=== PATIENT | female | born 1955 | race Two or more races ===

== ENCOUNTER 2020-12-29 21:22 | Emergency (ER) | payer MEDICARE, OTHER ==
[~2020-12-29] VITALS: Ht 152.4 cm; Wt 59.0 kg
[2020-12-30 00:49] VITALS: BP 167/99
[2020-12-30] MEDS ORDERED: KETOROLAC TROMETH 60MG/2ML VIAL IM ONE (06:00)
[2020-12-30 08:53] LABS: Basophils # (auto) 0.1 10 ^3/uL (0-0.2); Basophils % (auto) 0.4 % (0.0-2.0); Eosinophils # (auto) 0.1 10 ^3/uL (0-0.8); Eosinophils % (auto) 0.6 % (0.0-7.0); Hematocrit 41.5 % (36.0-46.0); Lymphocytes # (auto) 3.1 10 ^3/uL (0.4-5.4); Lymphocytes % (auto) 25.2 % (10.0-50.0); Mean Corpuscular Hemoglobin 29.2 pg (28.0-32.0); Mean Corpuscular Hgb Conc. 33.7 g/dL (32.0-36.0); Mean Corpuscular Volume 86.7 fL (80.0-100.0); Monocytes # (auto) 0.6 10 ^3/uL (0-1.3); Monocytes % (auto) 4.8 % (0.0-12.0); Neutrophils # (auto) 8.5 10 ^3/uL (1.6-8.6); Red Blood Cells 4.79 10^6/uL (4.0-5.20); Red Cell Distribution Width 13.3 % (11.8-14.3); White Blood Cell 12.3 10^3/uL (4.4-10.8)
[2020-12-30 09:11] LABS: Albumin 3.5 g/dL (3.4-5.0); Calcium 8.8 mg/dL (8.5-10.1); Potassium 3.5 mmol/L (3.5-5.1)
[2020-12-30 09:14] LABS: BUN/Creatinine Ratio 21.1; Bilirubin, Total 0.5 mg/dL (0.2-1.0); Total Protein 7.7 g/dL (6.4-8.2)
== END 2020-12-30 09:54 | disposition home or self-care (01) ==
LOC: ER 21:25
DX: G43.909 Migraine, unspecified, not intractable, without status migrainosus (principal); E78.5 Hyperlipidemia, unspecified
CPT/HCPCS: 36415; 70450; 80053; 85025; 93005; 96372; 99285; J1885

== ENCOUNTER 2021-01-16 22:55 | Emergency (ER) | payer OTHER ==
[~2021-01-16] VITALS: Ht 152.4 cm; Wt 68.0 kg
[2021-01-17 00:57] LABS: Basophils # (auto) 0.1 10 ^3/uL (0-0.2); Basophils % (auto) 0.9 % (0.0-2.0); Eosinophils # (auto) 0.1 10 ^3/uL (0-0.8); Monocytes # (auto) 0.6 10 ^3/uL (0-1.3); Neutrophils # (auto) 5.6 10 ^3/uL (1.6-8.6); Neutrophils % (auto) 61.4 % (37.0-80.0); White Blood Cell 9.2 10^3/uL (4.4-10.8)
[2021-01-17 01:01] LABS: Eosinophils % (auto) 0.7 % (0.0-7.0); Hematocrit 43.9 % (36.0-46.0); Lymphocytes # (auto) 2.8 10 ^3/uL (0.4-5.4); Lymphocytes % (auto) 30.3 % (10.0-50.0); Mean Corpuscular Hemoglobin 29.5 pg (28.0-32.0); Mean Corpuscular Hgb Conc. 34.1 g/dL (32.0-36.0); Mean Corpuscular Volume 86.4 fL (80.0-100.0); Monocytes % (auto) 6.7 % (0.0-12.0); Nucleated Red Blood Cells % 0.1 %; Red Blood Cells 5.08 10^6/uL (4.0-5.20); Red Cell Distribution Width 13.6 % (11.8-14.3)
[2021-01-17 01:10] LABS: Albumin 4.2 g/dL (3.4-5.0); Calcium 9.6 mg/dL (8.5-10.1); Potassium 3.6 mmol/L (3.5-5.1)
[2021-01-17 01:15] LABS: BUN/Creatinine Ratio 24.2; Bilirubin, Total 0.4 mg/dL (0.2-1.0); Total Protein 8.9 g/dL (6.4-8.2)
[2021-01-17 01:50] LABS: Partial Thromboplastin Time 26.7 sec (23.6-33.0)
[2021-01-17] MEDS ORDERED: diphenhdrAMINE HCL 50 MG/1 ML VL IV ONE (03:30)
[2021-01-17] MEDS ORDERED: KETOROLAC TROMETH 30 MG/ML 1ML VIAL IV ONE (03:30)
[2021-01-17] MEDS ORDERED: METOCLOPRAMIDE HCL 5MG/ml INJ 2ml VIAL IV ONE (03:30)
[2021-01-17] MEDS ORDERED: ACETAMINOPHEN 500 MG TAB PO ONE (03:30)
[2021-01-17] MEDS ORDERED: SODIUM CHLORIDE 0.9% 1,000 ML IV ONE (03:30)
[2021-01-17 06:00] VITALS: BP 134/79
== END 2021-01-17 06:37 | disposition home or self-care (01) ==
LOC: ER 22:55
DX: G43.909 Migraine, unspecified, not intractable, without status migrainosus (principal); E78.5 Hyperlipidemia, unspecified
CPT/HCPCS: 36415; 70450; 71045; 80053; 83735; 83880; 84484; 85025; 85610; 85730; 93005; 96361; 96374; 96375

== ENCOUNTER 2021-03-22 02:45 | Emergency (ER) | payer OTHER ==
[~2021-03-22] VITALS: Ht 152.4 cm; Wt 59.0 kg
[2021-03-22 03:34] LABS: Basophils # (auto) 0.1 10 ^3/uL (0-0.2); Basophils % (auto) 0.8 % (0.0-2.0); Eosinophils # (auto) 0.1 10 ^3/uL (0-0.8); Eosinophils % (auto) 1.2 % (0.0-7.0); Hematocrit 45.3 % (36.0-46.0); Hemoglobin 15.2 g/dL (12.2-16.2); Lymphocytes # (auto) 3.5 10 ^3/uL (0.4-5.4); Lymphocytes % (auto) 33.3 % (10.0-50.0); Mean Corpuscular Hemoglobin 29.1 pg (28.0-32.0); Mean Corpuscular Hgb Conc. 33.5 g/dL (32.0-36.0); Mean Corpuscular Volume 86.8 fL (80.0-100.0); Monocytes # (auto) 0.7 10 ^3/uL (0-1.3); Neutrophils # (auto) 6.1 10 ^3/uL (1.6-8.6); Neutrophils % (auto) 57.7 % (37.0-80.0); Nucleated Red Blood Cells % 0.1 %; Red Blood Cells 5.22 10^6/uL (4.0-5.20); White Blood Cell 10.6 10^3/uL (4.4-10.8)
[2021-03-22 03:51] LABS: Albumin 4.3 g/dL (3.4-5.0); BUN/Creatinine Ratio 27.2; Potassium 4.4 mmol/L (3.5-5.1)
[2021-03-22 03:54] LABS: Bilirubin, Total 0.3 mg/dL (0.2-1.0); Total Protein 8.6 g/dL (6.4-8.2)
[2021-03-22 07:42] VITALS: BP 108/69
[2021-03-22] MEDS ORDERED: IBU600T PO (08:08)
[2021-03-22] MEDS ORDERED: HYDROcodone-ACET 5/325MG TAB PO ONE (08:30)
== END 2021-03-22 10:09 | disposition home or self-care (01) ==
LOC: ER 02:45
DX: G43.909 Migraine, unspecified, not intractable, without status migrainosus (principal); I10 Essential (primary) hypertension; E78.5 Hyperlipidemia, unspecified; Z79.1 Long term (current) use of non-steroidal anti-inflammatories (NSAID)
CPT/HCPCS: 36415; 70450; 80053; 84484; 85025; 93005

== ENCOUNTER 2021-04-07 23:51 | Emergency (ER) | payer OTHER ==
[~2021-04-07] VITALS: Ht 152.4 cm; Wt 59.0 kg
[~2021-04-07 23:51] MED LIST: IBU600T PO
[2021-04-08] MEDS ORDERED: MORPHINE SULFATE 4 MG/ML SYR/VIAL IV ONE (02:00)
[2021-04-08] MEDS ORDERED: ASPirin 325 MG TAB PO ONE (02:00)
[2021-04-08] MEDS ORDERED: NITROGLYCERIN 0.4 MG SL TAB SL ONE (02:00)
[2021-04-08] MEDS ORDERED: NITROGLYCERIN 0.4 MG SL TAB SL PRN (02:30)
[2021-04-08] MEDS ORDERED: SUMAtriptan SUCCINATE 6 MG/0.5 ML VL SC ONE (02:45)
[2021-04-08 06:00] VITALS: BP 137/77
== END 2021-04-08 06:24 | disposition home or self-care (01) ==
LOC: ER 23:51
DX: R07.89 Other chest pain (principal); G43.909 Migraine, unspecified, not intractable, without status migrainosus; E78.5 Hyperlipidemia, unspecified; I10 Essential (primary) hypertension; Z79.1 Long term (current) use of non-steroidal anti-inflammatories (NSAID)
CPT/HCPCS: 36415; 71045; 84484; 93005; 96372; 99285; J3030

== ENCOUNTER 2021-04-17 02:37 | Emergency (ER) | payer OTHER ==
[~2021-04-17] VITALS: Ht 149.9 cm; Wt 59.9 kg
[2021-04-17 03:33] VITALS: BP 130/83
[2021-04-17] MEDS ORDERED: METOCLOPRAMIDE HCL 5MG/ml INJ 2ml VIAL IV ONE (04:00)
[2021-04-17] MEDS ORDERED: KETOROLAC TROMETH 30 MG/ML 1ML VIAL IV ONE (04:00)
[2021-04-17] MEDS ORDERED: SODIUM CHLORIDE 0.9% 1,000 ML IV ONE (04:00)
[2021-04-17] MEDS ORDERED: ACETAMINOPHEN 325 MG TAB PO ONE (04:00)
== END 2021-04-17 07:36 | disposition home or self-care (01) ==
LOC: ER 02:37
DX: G44.049 Chronic paroxysmal hemicrania, not intractable (principal); E78.5 Hyperlipidemia, unspecified; Z79.1 Long term (current) use of non-steroidal anti-inflammatories (NSAID)
CPT/HCPCS: 70450; 96361; 96374; 99284; J1885; J2765; J7030

== ENCOUNTER 2021-05-06 16:20 | Inpatient (IN) | payer OTHER ==
[~2021-05-06] VITALS: Ht 152.4 cm; Wt 58.3 kg
[2021-05-06] MEDS ORDERED: SODIUM CHLORIDE 0.9% 1,000 ML IV ONE (18:15)
[2021-05-06] MEDS ORDERED: diphenhdrAMINE HCL 50 MG/1 ML VL IV ONE (18:15)
[2021-05-06 19:06] LABS: Basophils # (auto) 0.1 10 ^3/uL (0-0.2); Basophils % (auto) 0.9 % (0.0-2.0); Eosinophils # (auto) 0.1 10 ^3/uL (0-0.8); Eosinophils % (auto) 0.8 % (0.0-7.0); Hematocrit 38.4 % (36.0-46.0); Hemoglobin 13.7 g/dL (12.2-16.2); Lymphocytes % (auto) 28.8 % (10.0-50.0); Mean Corpuscular Hemoglobin 29.7 pg (28.0-32.0); Mean Corpuscular Hgb Conc. 35.7 g/dL (32.0-36.0); Mean Corpuscular Volume 83.1 fL (80.0-100.0); Monocytes # (auto) 0.6 10 ^3/uL (0-1.3); Monocytes % (auto) 5.3 % (0.0-12.0); Neutrophils # (auto) 6.6 10 ^3/uL (1.6-8.6); Neutrophils % (auto) 64.2 % (37.0-80.0); Nucleated Red Blood Cells % 0.1 %; Red Blood Cells 4.63 10^6/uL (4.0-5.20); Red Cell Distribution Width 13.1 % (11.8-14.3); White Blood Cell 10.3 10^3/uL (4.4-10.8)
[2021-05-06 19:23] LABS: Albumin 4.4 g/dL (3.4-5.0); Calcium 9.7 mg/dL (8.5-10.1); Magnesium 2.8 mg/dL (1.6-2.6); Potassium 3.2 mmol/L (3.5-5.1)
[2021-05-06 19:27] LABS: BUN/Creatinine Ratio 26.1; Bilirubin, Total 0.4 mg/dL (0.2-1.0); Total Protein 8.3 g/dL (6.4-8.2)
[2021-05-06] MEDS ORDERED: VALPROATE INJ 1,000 MG in SODIUM CHL 0.9% 100 ML IV ONE (21:30)
[2021-05-06] MEDS ORDERED: NITROGLYCERIN 0.4 MG SL TAB SL PRN (21:30)
[2021-05-06] MEDS ORDERED: MORPHINE SULFATE INJECTION 2 MG/ML SYRG IV PRN (21:30)
[2021-05-06] MEDS ORDERED: ONDANSETRON HCL 4 MG/2 ML VIAL IV PRN (21:30)
[2021-05-06] MEDS ORDERED: MORPHINE SULFATE 4 MG/ML SYR/VIAL IV PRN (21:30)
[2021-05-06] MEDS ORDERED: DOCUSATE SOD 100 MG CAP PO PRN (21:30)
[2021-05-07 02:50] VITALS: BP 143/71
[2021-05-07] MEDS: HYDROcodone-ACET 5/325MG TAB PO PRN ×3 (03:27→21:54)
[2021-05-07 04:25] LABS: Urine Bacteria NONE SEEN /hpf (None Seen); Urine Blood Negative /uL (Negative); Urine Specific Gravity 1.004 (1.001-1.035); Urine WBC <1 /hpf (0 - 5)
[2021-05-07 05:00] VITALS: BP 143/79
[2021-05-07 06:11] LABS: Basophils # (auto) 0.1 10 ^3/uL (0-0.2); Basophils % (auto) 0.6 % (0.0-2.0); Eosinophils # (auto) 0.1 10 ^3/uL (0-0.8); Hematocrit 35.7 % (36.0-46.0); Hemoglobin 12.7 g/dL (12.2-16.2); Lymphocytes # (auto) 3.8 10 ^3/uL (0.4-5.4); Lymphocytes % (auto) 37.9 % (10.0-50.0); Mean Corpuscular Hemoglobin 29.9 pg (28.0-32.0); Mean Corpuscular Hgb Conc. 35.7 g/dL (32.0-36.0); Mean Corpuscular Volume 83.8 fL (80.0-100.0); Monocytes # (auto) 0.6 10 ^3/uL (0-1.3); Monocytes % (auto) 5.6 % (0.0-12.0); Neutrophils # (auto) 5.5 10 ^3/uL (1.6-8.6); Neutrophils % (auto) 54.9 % (37.0-80.0); Red Blood Cells 4.26 10^6/uL (4.0-5.20); Red Cell Distribution Width 12.8 % (11.8-14.3)
[2021-05-07 06:21] LABS: Albumin 3.5 g/dL (3.4-5.0); Calcium 9.1 mg/dL (8.5-10.1); Potassium 3.4 mmol/L (3.5-5.1)
[2021-05-07 06:26] LABS: BUN/Creatinine Ratio 23.5; Bilirubin, Total 0.4 mg/dL (0.2-1.0); Total Protein 6.8 g/dL (6.4-8.2)
[2021-05-07 09:00] VITALS: BP 112/63
[2021-05-07 13:00] VITALS: BP 104/65
[2021-05-07] MEDS ORDERED: TOPI100T68 PO (14:22)
[2021-05-07] MEDS ORDERED: SUMA100T15 PO (14:22)
[2021-05-07] MEDS ORDERED: LISI20TA28 PO (14:22)
[2021-05-07] MEDS ORDERED: HYDR12.56 PO (14:22)
[2021-05-07] MEDS ORDERED: POTASSIUM CHL 20 Meq TABLET PO ONE (14:30)
[2021-05-07 17:00] VITALS: BP 101/60
[2021-05-07 22:00] VITALS: BP 101/67
[2021-05-08] MEDS: HYDROcodone-ACET 5/325MG TAB PO PRN ×3 (03:17→21:33)
[2021-05-08 05:00] VITALS: BP 112/70
[2021-05-08 09:18] VITALS: BP 110/64
[2021-05-08 17:00] VITALS: BP 142/78
[2021-05-08] MEDS ORDERED: LORazepam 2MG/ML-1ML VIAL IV PRN (17:15)
[2021-05-08 22:00] VITALS: BP 133/78
[2021-05-09 05:00] VITALS: BP 116/66
[2021-05-09 08:40] VITALS: BP 114/77
[2021-05-09] MEDS: HYDROcodone-ACET 5/325MG TAB PO PRN (13:32)
[2021-05-09 14:15] VITALS: BP 122/78
[2021-05-09 15:00] VITALS: BP 122/78
[2021-05-09] MEDS ORDERED: ATOR20TA50 PO (15:08)
[2021-05-09 16:21] VITALS: BP 134/84
[2021-05-09] MEDS ORDERED: ATORVASTATIN 20 MG TAB PO SCH (22:00)
== END 2021-05-09 17:17 | disposition home health service (06) | DRG 103 ==
LOC: ER 16:20 → TELE 21:29 → TELE-WESTW 23:55
PROVIDERS: ADMIT Nurse Practitioner; ATTEND Nurse Practitioner
DX: G43.919 Migraine, unspecified, intractable, without status migrainosus (principal); E87.1 Hypo-osmolality and hyponatremia; N17.9 Acute kidney failure, unspecified; R47.1 Dysarthria and anarthria; R20.0 Anesthesia of skin; Z20.822 Contact with and (suspected) exposure to COVID-19; E78.5 Hyperlipidemia, unspecified; G89.29 Other chronic pain; Z82.0 Family history of epilepsy and other diseases of the nervous system; Z86.73 Personal history of transient ischemic attack (TIA), and cerebral infarction without residual deficits; F41.9 Anxiety disorder, unspecified
CPT/HCPCS: 36415; 70450; 70551; 80053; 80061; 81001; 83036; 83735; 84484; 85025; 87081; 93005; 93306; 96365; 96375; 97116; 97163; 97530; G0378; J2405

== ENCOUNTER 2022-07-11 06:46 | Day surgery (SDC) | payer MEDICARE ==
[~2022-07-11] VITALS: Ht 152.4 cm; Wt 59.0 kg
[2022-07-11] VITALS (7 sets, daily range): BP systolic 111–143; BP diastolic 55–82
[~2022-07-11 06:46] MED LIST changes: +ASPI-543 PO; +ATOR20TA50 PO; -IBU600T PO; +IBUP-1456 PO; +MECL1TAB42 PO; +METO25TA5 PO; +POM; +TRAZ-227 PO
[2022-07-11] MEDS ORDERED: LIDOCAINE 2%HCL (LOCAL ANESTH.) INJ 20ML MDV ONE (07:24)
[2022-07-11] MEDS ORDERED: ANGIOMAX 250 MG VIAL IV ONE (07:40)
[2022-07-11] MEDS ORDERED: HEPARIN SODIUM (PORCINE) 5000 UNITS/ML 1ML VIAL ONE (07:40)
[2022-07-11] MEDS ORDERED: VERAPAMIL 2.5MG/ML INJ 2ML VIAL IV ONE (07:40)
[2022-07-11] MEDS ORDERED: fentaNYL CITRATE 100 MCG/2 ML VL ONE (07:40)
[2022-07-11] MEDS ORDERED: MIDAZOLAM HCL 2MG/2ML 2ml VIAL (1mg/ml) ONE (07:40)
[2022-07-11] MEDS ORDERED: SODIUM CHL 0.9% 0 ML ONE (07:41)
== END 2022-07-11 10:32 | disposition home or self-care (01) ==
LOC: CATH 06:46
PROVIDERS: ATTEND Internal Medicine Cardiovascular Disease
DX: R94.39 Abnormal result of other cardiovascular function study (principal); I25.10 Atherosclerotic heart disease of native coronary artery without angina pectoris; E78.5 Hyperlipidemia, unspecified; G43.909 Migraine, unspecified, not intractable, without status migrainosus; F41.9 Anxiety disorder, unspecified; Z79.1 Long term (current) use of non-steroidal anti-inflammatories (NSAID); Z79.82 Long term (current) use of aspirin; Z82.49 Family history of ischemic heart disease and other diseases of the circulatory system; Z81.1 Family history of alcohol abuse and dependence; Z84.89 Family history of other specified conditions; Z87.891 Personal history of nicotine dependence; Z79.899 Other long term (current) drug therapy
CPT/HCPCS: 76937; 93458; C1725; C1769; C1894; J1644; J2250; J3010; J7030; 99152

== ENCOUNTER 2022-09-13 10:08 | Inpatient (IN) | payer MEDICARE, OTHER ==
[~2022-09-13] VITALS: Ht 152.4 cm; Wt 60.2 kg
[2022-09-13 11:43] LABS: Basophils # (auto) 0 10 ^3/uL (0-0.2); Basophils % (auto) 0.7 % (0.0-2.0); Eosinophils # (auto) 0.1 10 ^3/uL (0-0.8); Eosinophils % (auto) 1.1 % (0.0-7.0); Hemoglobin 13.6 g/dL (12.2-16.2); Lymphocytes # (auto) 2.3 10 ^3/uL (0.4-5.4); Lymphocytes % (auto) 41.8 % (10.0-50.0); Mean Corpuscular Hemoglobin 29.3 pg (28.0-32.0); Mean Corpuscular Volume 86.4 fL (80.0-100.0); Monocytes # (auto) 0.4 10 ^3/uL (0-1.3); Monocytes % (auto) 6.8 % (0.0-12.0); Neutrophils # (auto) 2.7 10 ^3/uL (1.6-8.6); Neutrophils % (auto) 49.6 % (37.0-80.0); Nucleated Red Blood Cells % 0.2 %; Red Blood Cells 4.63 10^6/uL (4.0-5.20); Red Cell Distribution Width 13.5 % (11.8-14.3); White Blood Cell 5.4 10^3/uL (4.4-10.8)
[2022-09-13 12:03] LABS: BUN/Creatinine Ratio 13.5 (10.0-20.0); Calcium 9.7 mg/dL (8.5-10.1); Potassium 3.9 mmol/L (3.5-5.1)
[2022-09-13] MEDS ORDERED: SODIUM CHLORIDE 0.9% 1,000 ML IV ONE (12:15)
[2022-09-13] MEDS ORDERED: IOHEXOL 300 MG/ML 100ML BOTTLE IJ ONE (12:16)
[2022-09-13 12:56] LABS: Urine Bacteria NONE SEEN /hpf (None Seen); Urine Blood Negative /uL (Negative); Urine WBC 1 /hpf (0 - 5)
[2022-09-13 13:01] LABS: Urine Specific Gravity 1.051 (1.001-1.035)
[2022-09-13] MEDS ORDERED: InsuLIN REG 1unit/0.01ml Soln (100units/ml) IV ONE (13:15)
[2022-09-13] MEDS ORDERED: ONDANSETRON HCL 4 MG/2 ML VIAL IV PRN (13:45)
[2022-09-13] MEDS ORDERED: MORPHINE SULFATE INJ 2 MG/ml SYRG IV PRN ×2 (13:45)
[2022-09-13] MEDS ORDERED: DEXTROSE (50%) 50ML SYRG IV PRN (13:45)
[2022-09-13] MEDS ORDERED: DOCUSATE SOD 100 MG CAP PO PRN (13:45)
[2022-09-13] MEDS ORDERED: NITROGLYCERIN 0.4 MG SL TAB SL PRN (13:45)
[2022-09-13] MEDS: CLINDAMYCIN 300MG IV 50 ML IV SCH (14:00)
[2022-09-13 15:17] VITALS: PULSE 88; RESP 18; O2SAT 97
[2022-09-13] MEDS: InsuLIN REG 1unit/0.01ml Soln (100units/ml) SC SCH ×2 (17:00→23:17)
[2022-09-13] MEDS: ACCU-CHEK COMFORT CURVE STRIP VI SCH ×2 (17:24→23:12)
[2022-09-13 19:45] VITALS: PULSE 89; RESP 16; O2SAT 99
[2022-09-13] MEDS: ACETAMINOPHEN 325 MG TAB PO PRN (20:41)
[2022-09-14 01:04] VITALS: PULSE 80; RESP 18; O2SAT 97
[2022-09-14] MEDS: CLINDAMYCIN 300MG IV 50 ML IV SCH ×3 (01:36→17:23)
[2022-09-14] MEDS: TEMAZEPAM 15 MG CAP PO PRN ×2 (02:03→21:19)
[2022-09-14 05:21] VITALS: BP 131/82; PULSE 83; RESP 20; TEMP 97.6; O2SAT 97
[2022-09-14] MEDS ORDERED: hydrALAZINE HCL 20 MG/ML VL IV PRN (06:00)
[2022-09-14 06:14] LABS: Basophils # (auto) 0 10 ^3/uL (0-0.2); Basophils % (auto) 0.7 % (0.0-2.0); Eosinophils # (auto) 0.1 10 ^3/uL (0-0.8); Eosinophils % (auto) 1.5 % (0.0-7.0); Hematocrit 40.6 % (36.0-46.0); Lymphocytes # (auto) 3.5 10 ^3/uL (0.4-5.4); Lymphocytes % (auto) 50.9 % (10.0-50.0); Mean Corpuscular Hemoglobin 29.7 pg (28.0-32.0); Mean Corpuscular Hgb Conc. 34.4 g/dL (32.0-36.0); Mean Corpuscular Volume 86.1 fL (80.0-100.0); Monocytes # (auto) 0.5 10 ^3/uL (0-1.3); Monocytes % (auto) 7.4 % (0.0-12.0); Neutrophils # (auto) 2.7 10 ^3/uL (1.6-8.6); Neutrophils % (auto) 39.5 % (37.0-80.0); Nucleated Red Blood Cells % 0.1 %; Red Blood Cells 4.71 10^6/uL (4.0-5.20); Red Cell Distribution Width 13.5 % (11.8-14.3); White Blood Cell 6.9 10^3/uL (4.4-10.8)
[2022-09-14 06:32] LABS: Albumin 3.9 g/dL (3.4-5.0); BUN/Creatinine Ratio 11.4 (10.0-20.0); Bilirubin, Total 0.4 mg/dL (0.2-1.0); Total Protein 7.4 g/dL (6.4-8.2)
[2022-09-14] MEDS: ACCU-CHEK COMFORT CURVE STRIP VI SCH ×4 (06:42→21:47)
[2022-09-14] MEDS: InsuLIN REG 1unit/0.01ml Soln (100units/ml) SC SCH ×4 (06:45→21:51)
[2022-09-14 08:00] VITALS: BP 130/86; PULSE 102; RESP 17; RESP 21; TEMP 98.2; O2SAT 95; O2SAT 97
[2022-09-14] MEDS: LISINOPRIL 20 MG TAB PO SCH (10:43)
[2022-09-14] MEDS: ENOXAPARIN SOD 40 MG/0.4 ML SYRINGE SC SCH (10:43)
[2022-09-14 12:00] VITALS: BP 106/62; PULSE 93; RESP 19; TEMP 98.1; O2SAT 96
[2022-09-14] MEDS: ACETAMINOPHEN 325 MG TAB PO PRN (12:36)
[2022-09-14 16:00] VITALS: BP 120/79; PULSE 80; RESP 20; TEMP 98.7; O2SAT 97
[2022-09-14] MEDS: HYDROcodone-ACET 5/325MG TAB PO PRN (21:19)
[2022-09-14 22:00] VITALS: BP 126/86; PULSE 76; RESP 20; TEMP 97.5; O2SAT 95
[2022-09-15] MEDS: CLINDAMYCIN 300MG IV 50 ML IV SCH ×3 (00:14→17:00)
[2022-09-15 04:00] VITALS: BP 96/54; PULSE 69; RESP 17; TEMP 97.6; O2SAT 94
[2022-09-15 05:00] VITALS: BP 96/54; PULSE 69; RESP 17; TEMP 97.6; O2SAT 94
[2022-09-15] MEDS: InsuLIN REG 1unit/0.01ml Soln (100units/ml) SC SCH ×3 (05:52→17:00)
[2022-09-15] MEDS: ACCU-CHEK COMFORT CURVE STRIP VI SCH ×3 (05:52→17:27)
[2022-09-15 08:00] VITALS: BP 89/55; PULSE 69; RESP 20; TEMP 98.4; O2SAT 97
[2022-09-15] MEDS: LISINOPRIL 20 MG TAB PO SCH (09:21)
[2022-09-15] MEDS: ACETAMINOPHEN 325 MG TAB PO PRN (09:25)
[2022-09-15] MEDS: ENOXAPARIN SOD 40 MG/0.4 ML SYRINGE SC SCH (09:25)
[2022-09-15 12:00] VITALS: BP 117/66; PULSE 87; RESP 21; TEMP 98.9; O2SAT 99
[2022-09-15] MEDS: HYDROcodone-ACET 5/325MG TAB PO PRN (13:01)
[2022-09-15 16:00] VITALS: BP 120/78; PULSE 65; RESP 21; TEMP 98.4; O2SAT 98
[2022-09-15] MEDS ORDERED: BLOO1KIT60 XX (16:07)
[2022-09-15] MEDS ORDERED: SITA50TA PO (16:07)
[2022-09-15] MEDS ORDERED: METF-370 PO (16:07)
[2022-09-15] MEDS ORDERED: LANC-347 XX (16:07)
[2022-09-15] MEDS ORDERED: SUMA50TA2 PO (17:08)
[2022-09-15] MEDS ORDERED: MECL1TAB32 PO (17:08)
[2022-09-15] MEDS ORDERED: CLIN-203 PO (17:08)
[2022-09-15] MEDS ORDERED: HYDR-4902 PO (17:08)
[2022-09-15] MEDS ORDERED: MECLIZINE HCL 25 MG TAB PO ONE (17:15)
[2022-09-15] MEDS ORDERED: SUMAtriptan SUCCINATE 25 MG TAB PO ONE (17:15)
== END 2022-09-15 18:09 | disposition home or self-care (01) | DRG 639 ==
LOC: ER 10:08 → OVERFLOW 13:35 → WEST WING 23:10
PROVIDERS: ADMIT Nurse Practitioner; ATTEND Nurse Practitioner
DX: E11.649 Type 2 diabetes mellitus with hypoglycemia without coma (principal); K14.6 Glossodynia; M54.2 Cervicalgia; I10 Essential (primary) hypertension; F41.9 Anxiety disorder, unspecified; Z20.822 Contact with and (suspected) exposure to COVID-19; Z79.899 Other long term (current) drug therapy; Z79.82 Long term (current) use of aspirin; Z82.49 Family history of ischemic heart disease and other diseases of the circulatory system; Z81.1 Family history of alcohol abuse and dependence
CPT/HCPCS: 36415; 70491; 80048; 80053; 81001; 82962; 83036; 85025; 87426; G0378; J1815; J3490

== ENCOUNTER 2023-01-21 12:11 | Emergency (ER) | payer MEDICARE ==
[~2023-01-21] VITALS: Ht 152.4 cm; Wt 57.0 kg
[~2023-01-21 12:11] MED LIST changes: +BLOO1KIT60 XX; +CLIN-203 PO; +HYDR-4902 PO; -IBUP-1456 PO; +LANC-347 XX; +MECL1TAB32 PO; -MECL1TAB42 PO; +METF-370 PO; -POM; +SITA50TA PO; +SUMA50TA2 PO
[2023-01-21 15:08] VITALS: BP 145/88; PULSE 87; RESP 16; TEMP 97.9; O2SAT 98
[2023-01-21] MEDS ORDERED: HYDROcodone-ACET 5/325MG TAB PO ONE (15:15)
[2023-01-21] MEDS ORDERED: HYDR-4902 PO (15:25)
[2023-01-21] MEDS ORDERED: LIDO2SOL26 MT (15:25)
== END 2023-01-21 15:38 | disposition home or self-care (01) ==
LOC: ER 12:11
DX: M54.2 Cervicalgia (principal); G89.18 Other acute postprocedural pain; E78.5 Hyperlipidemia, unspecified